=== PATIENT | female | born 1985 | race African-American/Black ===

== ENCOUNTER → 2018-10-06 | Outpatient (CLI) | payer OTHER ==
[~2018-10-06] MED LIST: ACYCLOVIR 400400 MG PO; NOHOMEMEDICATIONS
--- NOTE | 2018-10-08 21:48 | EKG ---
[address] [address] ELECTROCARDIOGRAM REPORT Name: WALTER ARCOS Room #: [facility]#: [id number] Admission: 10/06/18 Attend Phys: Morgan Christianson MD, F Discharge: Date of : 89 Report #: [id number] THIS REPORT FOR: //name// [facility] Test Date: 2018-10-06 Test Time: 15:35:07 Pat Name: WALTER ARCOS Department: Room: Gender: F Home Inspector: Haris SUMNER : 1985 Requested By: Morgan Christianson Order Number: [id number] MD: William Faith Measurements Intervals [place] Rate: 85 P: 25 DC: 134 QRS: 4 QRSD: 85 T: 12 QT: 367 QTc: 437 Interpretive Statements Sinus rhythm Compared to ECG 12/18/2002 22:49:13 No significant changes Electronically Signed On 10-08-2018 21:48:21 COUNTER MANAGER by William Faith [email or web address] <ELECTRONICALLY SIGNED> By: William Faith MD 10/08/18 2148 1535 1535 William Faith MD /MARINA
== END ==
LOC: RAD 15:13
DX: Z01.818 Encounter for other preprocedural examination (principal)

== ENCOUNTER 2018-10-27 05:12 | Day surgery (SDC) | payer OTHER ==
[~2018-10-27] VITALS: Ht 170.2 cm; Wt 115.2 kg
[2018-10-27 06:29] VITALS: BP 119/70
[2018-10-27 14:36] VITALS: BP 116/67
[2018-10-27 15:00] VITALS: BP 101/56
[2018-10-27 15:30] VITALS: BP 104/65
--- NOTE | 2018-10-27 15:50 | NUR ---
Pt resting. Bedside education on diet instruction upon discharge was given to Pt mother whom was in the room with Pt. Pt mother gave verbal understanding of all materials. Hard copy of materials can be found in Bariatric Handbook. RD urged that Pt call with any questions.
[2018-10-27 16:00] VITALS: BP 110/67
--- NOTE | 2018-10-27 16:37 | NUR ---
1615-PATIENT RESTING,GROGGY. DISCHARGE TEACHING COMPLETED WITH PATIENT'S MOTHER AT BEDSIDE PER POST OPERATIVE SLEEVE GASTRECTOMY INSTRUCTION HANDOUT (SEE HARDCOPY) PATIENT'S MOTHER VERBALIZES UNDERSTANDING OF ALL INFORMATION GIVEN AND DENIES QUESTIONS.
[2018-10-27 19:04] VITALS: BP 122/82
--- NOTE | 2018-10-27 19:45 | NUR ---
PT ARRIVED POST-OP 1430. SLEEPY/GROGGY, PAIN MANAGED WITH MEDICATIONS, UNSTEADY AND REQUIRES BEDPAIN FOR TOILETING. STRICT NPO AND EDUCATION GIVEN TO PATIENT AND MOTHER WHO IS BEDSIDE TO FOLLOW NPO. FALL PRECATION IN PLACE. CALL LIGHT INREACH.
--- NOTE | 2018-10-28 03:58 | NUR ---
Pt. rested quietly at very short intervals during the night when checked on during frequent rounds. Earlier last evening pt. refused to get up out of bed to use the bedside comode,toilet or bedpan. She wanted to use a towel between her legs. This nurse educated the pt. on how important it was to get up out of bed and using a towel was unsanitary. She became very upset and said she just could not do it. Told her I could premeidicate her before getting up. Pt. mother arrived shortly after this and encouraged pt. to get up out of bed. She did get up and use the comode. She has been getting schduled and prn pain meds (see emar) with some relief noted. Mother at the bedside all night.
[2018-10-28 04:26] VITALS: BP 104/53
[2018-10-28 05:32] LABS: BASOPHILS 0.1 % (0.0-2.0); HEMATOCRIT 30.2 % (37.0-47.0); HEMOGLOBIN 10.1 gm/dL (12.0-15.0); LYMPHOCYTES 14.7 % (24.0-44.0); MCH 31.1 pg (26.0-34.0); MCHC 33.6 g/dL (28.0-37.0); MCV 92.6 fL (80.0-100.0); MONOCYTES 7.6 % (1.0-8.0); PLATELET COUNT 201 thou/uL (150-400); POLYS 77.6 % (36.0-66.0); RBC 3.27 mil/uL (4.20-5.00); RDW 13.4 % (10.5-14.5)
[2018-10-28 05:47] LABS: CALCIUM 8.4 mg/dL (8.5-10.1); CREATININE 0.7 mg/dL (0.6-1.0); POTASSIUM 3.8 mmol/L (3.5-5.1)
--- NOTE | 2018-10-28 08:41 | O ---
[facility] [place] [address] OPERATIVE REPORT Name: WALTER ARCOS Room #: 461-P [facility]#: [id number] Admission: 10/27/18 Attend Phys: Morgan Christianson MD, F Discharge: Date of : 89 Report #: [id number] THIS REPORT FOR: //name// CC: Apple Christianson DATE OF SERVICE: 10/27/2018 SURGEON: Morgan Christianson MD. CERAMICS MACHINE OPERATOR: Lauro Navas DO. PREOPERATIVE DIAGNOSES: 1. Morbid obesity (body mass index 42). 2. Lumbago. 3. Depression. 4. Hirsutism. POSTOPERATIVE DIAGNOSES: 1. Morbid obesity (body mass index 42). 2. Lumbago. 3. Depression. 4. Hirsutism. PROCEDURE: Laparoscopic sleeve gastrectomy with EGD. ANESTHESIA: General endotracheal anesthesia and local anesthetic. ESTIMATED BLOOD LOSS: 50 mL. SPECIMEN: Lateral stomach. COMPLICATIONS: None appreciated. INDICATIONS FOR PROCEDURE: This is a 33-year-old female patient of Dr. Apple Clark who stands 5 feet 7 inches and weighed 268 pounds at her most recent office visit earlier this month with a BMI of 42. The patient's maximum weight is 310 pounds. She has had difficulty with her weight since age 12. She has tried numerous weight loss programs and plans including specialized diets, exercises, prescription and [id number] medications. The most weight she has lost is 60 pounds with phentermine. Any amount of weight she has lost, she has quickly regained plus additional weight after stopping the modality. She has comorbidities as listed above. She has been cleared from a multidisciplinary standpoint for bariatric surgery. She presents today for laparoscopic sleeve gastrectomy with EGD. [address] [address] OPERATIVE REPORT Name: JOSSELYNWALTER Collin Room #: 461-P [facility]#: [id number] Admission: 10/27/18 Attend Phys: Morgan Christianson MD, F Discharge: Date of : 89 Report #: [id number] OPERATIVE FINDINGS: On EGD, the patient had a normal-appearing esophagus, stomach and duodenum to the third portion with no polyps, masses, diverticula, or ulcers. On retroflexion of the scope within the antrum of the stomach, there was no evidence for hiatal hernia. Laparoscopically, the patient had an enlarged stomach as expected. Her liver showed mild fatty changes. The small-bowel and colon and surrounding area appeared otherwise normal. The gastric sleeve staple line was located 4 cm lateral/proximal to the pylorus, 3 cm lateral to the incisura, and 1 cm lateral to the GE junction. There was a misfiring of the stapler more proximally, which required re-stapling of that area. After doing so, a leak test with the sleeve submerged under saline showed no evidence for staple line leak, especially in the area where the stapler had misfired. Endoluminally, there was no bleeding within the sleeve. There is no significant stricture as the lumen was well- contoured. No other significant intra-abdominal pathology was seen. At the conclusion of the operation, sponge, needle, and instrument counts were correct. The excised stomach held over 1 liter of fluid on the backtable with passive stretch. DESCRIPTION OF PROCEDURE IN DETAIL: After the risks, benefits, and expectations of the operation were discussed in detail with the patient, informed consent was obtained. The patient was identified in preoperative holding area. She was given IV antibiotics as documented in the chart in line with SCIP metrics as well as subcutaneous Lovenox. The patient was then taken to the operating room and she was placed in the supine position. The SCDs were placed on the patient's bilateral lower extremities and pneumatic compression was initiated. The patient was then given IV sedation and she was intubated without incident. She was placed in the low lying dorsal lithotomy position in Yellofin stirrups on the operating table. She was secured to the bed on a beanbag, which was formed to the patient's body. A bite block and orogastric tube were placed by anesthesia under my direction. A time-out was performed to identify the correct patient and procedure. EGD was performed first. The gastroscope was inserted into the patient's oropharynx and passed down the esophagus into the stomach and beyond the pylorus to the second portion of the duodenum. The scope was then slowly withdrawn. The scope was withdrawn into the antrum of the stomach, the scope was retroflexed and a retrograde view of the cardia was seen. The scope was then straightened and slightly withdrawn. It was left in place within the stomach to serve as a 34-Divehi bougie. Suction was applied to the orogastric tube to decompress the stomach. The patient's abdomen was then prepped and draped in the standard sterile fashion. Local anesthetic was infiltrated into the skin and subcutaneous tissue in the left supraumbilical area where a small transverse incision was made. A 5 mm Visiport was placed intraperitoneally with a 0-degree angled laparoscope. [address] [address] OPERATIVE REPORT Name: WALTER ARCOS Room #: 461-P [facility]#: [id number] Admission: 10/27/18 Attend Phys: Morgan Christianson MD, F Discharge: Date of : 89 Report #: [id number] Pneumoperitoneum was achieved with insufflation of carbon dioxide to 15 mmHg. A 30-degree angled laparoscope was then inserted. A 15 mm port was then placed in the right mid abdominal area after local anesthetic was infiltrated into the skin and subcutaneous tissue and an appropriately sized incision was made. Additional 5 mm ports were placed in the left mid and left lateral abdomen. The patient was then placed in the reverse Trendelenburg position. Local anesthetic was infiltrated into the subxiphoid area where a small transverse skin francisco was made and a 5 mm obturator was used to penetrate the fascia. This created a passageway for the Bahman liver retractor, which was held in place with the Iron Product Support Representative apparatus. Operative findings were as noted above. The gastrosplenic ligament and short gastric vessels were divided with the ultrasound dissector with good hemostasis up to the left lucrecia of the diaphragm. There was some bleeding from a short gastric vessel located in a tight plane between the stomach and spleen. This was controlled with the ultrasonic dissector and an 8 x 4 cm piece of Surgicel. Dissection was continued along the greater curvature of the stomach to an area that was measured to be 4 cm lateral/proximal to the pylorus. The stomach was then rotated medially. All posterior attachments were taken down with the ultrasonic dissector. There was no evidence for hiatal hernia. The gastric sleeve was then created starting distally and working proximally using the 60 mm powered endoscopic DIDI stapler. All staple loads were buttressed with Jenny-Strips. The initial two firings were with black loads, the remaining firings were with green loads. The second to last staple firing failed as the stapler fired; however, the emmanuelle themselves did not engage. The cutting mechanism on the stapler divided the tissue without forming the emmanuelle. This left a large opening that required trimming of the Jenny-Strips and placement of a [id number] 2-0 silk suture to approximate the midportion of the opening of both the anterior and posterior rocha. This suture was used as a handle to help fire another staple load medially to close off the opening. In order to get an appropriate angle to do so, the left mid-abdominal 5 mm port was upsized to a 12 mm port under direct visualization. The transected stomach was then removed through the 15 mm port site. An 0 PDS suture was placed with the Carlos Eduardo-Christian laparoscopic fascial closure device to approximate the fascia. The suture was tagged and the port was replaced. The patient was taken out of reverse Trendelenburg position. The gastric sleeve was submerged under saline and the endoscope was used to gently insufflate carbon dioxide into the sleeve to perform a formal leak test. No air bubbles were seen exiting from the staple line. The scope was withdrawn while doing so with findings as noted above. The stomach was then decompressed and the scope was slowly withdrawn. The abdominal cavity was suctioned of the fluid. There was good hemostasis. 20 mL of Tisseel was then evenly applied to the gastric sleeve staple line concentrating on the area where the stapler had misfired. After ensuring final hemostasis within the abdominal cavity, the 12 mm left [address] [address] OPERATIVE REPORT Name: WALTER ARCOS Room #: 461-P [facility] M.Arcelia#: [id number] Admission: 10/27/18 Attend Phys: Morgan Christianson MD, F Discharge: Date of : 89 Report #: [id number] mid-abdominal port was removed and an 0 PDS suture was placed with the Carlos Eduardo-Christian laparoscopic fascial closure device. Both fascial sutures were tied under direct visualization to ensure no incorporation of intra-abdominal content. The Bahman liver retractor was removed without difficulty. The abdominal cavity was then desufflated and the ports were removed. Interrupted subcuticular 4-0 Monocryl sutures and Dermabond were used to close the skin incisions. The patient tolerated the procedure well. She was awakened, extubated, and taken to recovery room in stable condition. <ELECTRONICALLY SIGNED> By: Morgan Christianson MD, FACS 10/28/18 0841 1651 1726 Morgan Christianson MD, FACS /nt
[2018-10-28] MEDS ORDERED: HYDROCODONE-ACE15 ML PO (10:08)
[2018-10-28] MEDS ORDERED: ZOFRAN ODT4 MG DISSOLVE (10:08)
[2018-10-28 14:10] VITALS: BP 137/83
[2018-10-28 15:22] VITALS: BP 137/83
--- NOTE | 2018-10-28 16:04 | NUR ---
PATIENT A/OX4, PAIN MANAGED WITH MEDICATIONS, UP WITH STAND BY TO BATHROOM. DIET CHANGED TO CLEAR LIQUIDS AT NOON. PT STATED SHE VOMITED A LITTLE AFTER SHE DRANK APPLE JUICE. SHE ADMITTED SHE DRANK THE FULL CUP. RE-EDUCATED PATIENT TO SMALL SIPS. NOTIFED DR CHANDLER OF PT'S STATUS. ORDER TO DC HOME TODAY. PT DC'D HOME WITH MOTHER. AT 1530
== END 2018-10-28 15:45 | disposition home or self-care (01) ==
LOC: OR 05:12 → TBA 05:12 → OR 08:46 → 4W 14:17 → OR 10-28 15:45
PROVIDERS: Surgery
DX: E66.01 Morbid (severe) obesity due to excess calories (principal); M54.5 Low back pain; F32.9 Major depressive disorder, single episode, unspecified; L68.0 Hirsutism; Z68.41 Body mass index [BMI] 40.0-44.9, adult; Z79.891 Long term (current) use of opiate analgesic; Z98.890 Other specified postprocedural states; Z79.899 Other long term (current) drug therapy
CPT/HCPCS: 10047; 50010; 50101; 50222; 50249; 50386; 50555; 50558; 50739; 50740; 50962; 51437; 51489; 52182; 52265; 53307; 53311; 54022; 54118; 55245; 56462; 56525; 56526; 56639; 57092; 62110; 62900; 70005

== ENCOUNTER 2018-10-30 11:28 | Inpatient (IN) | payer OTHER ==
[~2018-10-30] VITALS: Ht 170.2 cm; Wt 114.8 kg
[~2018-10-30 11:28] MED LIST changes: +HYDROCODONE-ACE15 ML PO; +ZOFRAN ODT4 MG DISSOLVE
[2018-10-30 11:29] VITALS: BP 129/74
[2018-10-30 12:06] LABS: ABSOLUTE NEUTROPHILS 6.6 thou/uL (1.4-8.2); BASOPHILS 0.6 % (0.0-2.0); EOSINOPHILS 0.1 % (0.0-3.0); HEMATOCRIT 26.3 % (37.0-47.0); HEMOGLOBIN 8.9 gm/dL (12.0-15.0); LYMPHOCYTES 26.1 % (24.0-44.0); MCHC 33.9 g/dL (28.0-37.0); MCV 91.4 fL (80.0-100.0); PLATELET COUNT 211 thou/uL (150-400); POLYS 67.2 % (36.0-66.0); RBC 2.88 mil/uL (4.20-5.00); RDW 12.8 % (10.5-14.5); WBC 9.8 thou/uL (4.0-11.0)
[2018-10-30 12:13] LABS: CALCIUM 8.6 mg/dL (8.5-10.1); CREATININE 0.6 mg/dL (0.6-1.0); POTASSIUM 3.4 mmol/L (3.5-5.1)
[2018-10-30 12:19] LABS: ALBUMIN 2.9 g/dL (3.4-5.0); TOTAL BILIRUBIN 0.6 mg/dL (<0.1-1.0); TOTAL PROTEIN 6.7 g/dL (6.4-8.2)
[2018-10-30 13:02] LABS: URINE CLARITY CLOUDY; URINE COLOR YELLOW; URINE SPECIFIC GRAVITY 1.025 (1.005-1.035)
[2018-10-30 13:03] LABS: URINE BLOOD 3+ (Negative); URINE GLUCOSE-RANDOM* NEGATIVE (Negative); URINE KETONES 3+ (Negative); URINE LEUKOCYTES-REFLEX 2+ (Negative); URINE NITRITE-REFLEX NEGATIVE (Negative); URINE PROTEIN (DIPSTICK) TRACE (Negative)
[2018-10-30 13:15] LABS: URINE BILIRUBIN NEGATIVE (Negative); URINE REDUCING SUBSTANCE NEGATIVE
[2018-10-30 13:16] LABS: ICTOTEST (BILI CONFIRMATORY) Negative (Negative)
[2018-10-30 13:25] VITALS: BP 136/47
[2018-10-30 13:33] LABS: CASTS None Seen /LPF (None Seen); CRYSTALS None Seen /LPF (None Seen); SQUAMOUS 4-10 Moderate /LPF (0-3)
[2018-10-30 13:34] LABS: URINE RBC 3-10 Few /HPF (0-2); YEAST-REFLEX Present (None Seen)
[2018-10-30 14:43] VITALS: BP 118/62
[2018-10-30 14:55] VITALS: BP 117/84
--- NOTE | 2018-10-30 17:48 | NUR ---
PT RECEIVED FROM THE ER AT 1500 INTO 417 ALERT AND IN NO ACUTE DISTRESS. PT HAD GASTRIC SLEEVE 10/27 AND DC'D ON THE . PT READMITTED FOR PERSISTENT NAUSEA AND VOMITING W/ SOME ABD PAIN. PT GIVEN IV NAUSEA MED AND PAIN MED AND FEELING SOME BETTER. IV FLUIDS INFUSING. PT TRYING TO DRINK SOME GATORADE. LAP SITES BRUISED BUT HEALING. MOTHER AT BEDSIDE.
[2018-10-30 20:23] VITALS: BP 128/69
--- NOTE | 2018-10-30 21:05 | NUR ---
PT STARTED OFF SHIFT WITH C/O HEADACHE AND ABDOMINAL PAIN WELL NAUSEA. GIVEN IV MORPHINE, ZOFRAN WELL A COLD WASH CLOTH OVER FOREHEAD. VITALS TAKEN AND ALL WITHIN NORMAL LIMIT. TEMP OF 99.2.PT HAS IVF RUNNING.PT STARTED FEELING BETTER AFTER ABOUT 20MINS AND WENT BACK TO SLEEP. BOWEL SOUNDS PRESENT. ABDOMINAL LAP SITES LOOK OKAY.NO FURTHER CONCERNS AT THIS TIME. WILL CONTINUE WITH POC TILL EOS.
[2018-10-31 04:37] VITALS: BP 125/70
[2018-10-31 05:37] LABS: HEMATOCRIT 22.1 % (37.0-47.0); HEMOGLOBIN 7.6 gm/dL (12.0-15.0); MCH 31.6 pg (26.0-34.0); MCHC 34.3 g/dL (28.0-37.0); MCV 92.2 fL (80.0-100.0); RBC 2.4 mil/uL (4.20-5.00); WBC 7.3 thou/uL (4.0-11.0)
[2018-10-31 05:47] LABS: CALCIUM 8.3 mg/dL (8.5-10.1); CREATININE 0.6 mg/dL (0.6-1.0); POTASSIUM 3.5 mmol/L (3.5-5.1)
[2018-10-31 07:16] VITALS: BP 91/52
[2018-10-31 14:00] VITALS: BP 112/66
--- NOTE | 2018-10-31 18:01 | NUR ---
PT DOING SOME BETTER TODAY. NAUSEA BETTER AND TAKING MORE LIQUIDS INCLUDING HI PROTEIN ENSURE. PASSING FLATUS BUT NO BM. PAIN MEDS CHANGED PER DR. CHANDLER. ENC TO AMBULATE IN THE HALLS.
[2018-10-31 19:27] VITALS: BP 124/70
--- NOTE | 2018-11-01 01:26 | NUR ---
DOING BETTER OVERALL. WALKED THE HALLWAYS X 2 BEFORE SLEEPING. STILL C/O LEFT SIDED HEADACHE, LORTAB GIVEEN AND THERAFTER TORADOL. NO NAUSEA.MANATAINING INTAKE SPARINGLY.IVF INFUSING. NO FURTHER CONCERNS.
[2018-11-01 04:30] VITALS: BP 134/83
[2018-11-01 05:39] VITALS: BP 110/58
[2018-11-01 07:10] VITALS: BP 115/51
--- NOTE | 2018-11-01 08:14 | NUR ---
ASSESMENT COMPLETED. VSS. A/O. C/O HEADACHE/ABDOMINAL PAIN- MEDS GIVEN ORDERED- SEE MAR. NO NOTED SOA. UP AD BRONWYN. DENIES NV. PT RESTING IN BED AT THIS TIME. NO CONCERNS VOICED. WILL CONT. TO MONITOR.
[2018-11-01 09:20] VITALS: BP 115/51
--- NOTE | 2018-11-01 11:28 | NUR ---
DC INSTRUCTIONS GIVEN TO PT. PT VERBALIZED UNDERSTANDING. WAITING FOR TRANSPORT.
[2018-11-01 11:42] LABS: HEMATOCRIT 24.5 % (37.0-47.0); HEMOGLOBIN 8.4 gm/dL (12.0-15.0)
== END 2018-11-01 14:36 | disposition home or self-care (01) | DRG 641 ==
LOC: ER 11:28 → EROBS 13:20 → 4E 13:20 → ENTRNSPT 11-01 13:10 → EDTRNSPTSTS 11-01 13:13 → 4E 11-01 14:36
PROVIDERS: Physician Assistant; Surgery; ADMIT Hospitalist
DX: E86.0 Dehydration (principal); B37.3 Candidiasis of vulva and vagina; R13.10 Dysphagia, unspecified; E66.9 Obesity, unspecified; Z79.1 Long term (current) use of non-steroidal anti-inflammatories (NSAID); Z79.899 Other long term (current) drug therapy; Z68.39 Body mass index [BMI] 39.0-39.9, adult; Z98.84 Bariatric surgery status
CPT/HCPCS: 10084